=== PATIENT | male | born 1935 | race Caucasian/White ===

== ENCOUNTER 2020-10-12 16:50 | Emergency (ER) | payer MEDICARE, BC ==
[~2020-10-12 16:50] MED LIST: ADULT LOW DOSE81 MG PO; ALTACE5 MG PO; CITRACAL + BON1 EACH PO; CLARINEX5 MG PO; COREG3.125 MG PO; COREG6.25 MG PO; FLOMAX 0.4 MG0.4 MG PO; LIPITOR40 MG PO; NIACIN ER1000 MG PO; OMEPRAZOLE40 MG PO; PACERONE200 MG PO; REQUIP0.25 MG PO; XARELTO20 MG PO
[2020-10-12 17:28] LABS: HEMOGLOBIN 12.8 gm/dl (14.0-17.5); RED BLOOD COUNT 4.37 M/UL (4.20-5.50); WHITE BLOOD COUNT 6.8 K/UL (4.5-11.0)
[2020-10-12 17:52] LABS: BUN/CREATININE RATIO 18 (0-10)
== END 2020-10-12 19:46 | disposition home or self-care (01) ==
LOC: ER1 16:50
PROVIDERS: Preventive Medicine Occupational Medicine
DX: E16.2 Hypoglycemia, unspecified (principal); I10 Essential (primary) hypertension; I25.10 Atherosclerotic heart disease of native coronary artery without angina pectoris; Z88.0 Allergy status to penicillin; Z20.822 Contact with and (suspected) exposure to COVID-19
CPT/HCPCS: 71045; 80053; 82962; 83690; 85025; 85652; 86140; 93005; 96374; 96375; 99285; J1610; U0002

== ENCOUNTER → 2021-11-13 | Outpatient (CLI) | payer MEDICARE, BC ==
[~2021-11-13] VITALS: Ht 177.8 cm; Wt 83.9 kg
[2021-11-13 08:33] LABS: BUN/CREATININE RATIO 15 (0-10)
[2021-11-14 08:14] LABS: CORTISOL 12.6 ug/dL (.)
[2021-11-14 12:10] LABS: C-PEPTIDE, SERUM 3.9 ng/mL (1.1-4.4)
== END ==
LOC: LAB 07:32 → OPSV 07:32
PROVIDERS: Legal Medicine
DX: E16.2 Hypoglycemia, unspecified (principal); E88.81 Metabolic syndrome and other insulin resistance
CPT/HCPCS: 36415; 80053; 82533; 84206; 84681; 96372; J0834